=== PATIENT | female | born 1985 | race Caucasian/White ===

== ENCOUNTER 2016-06-07 09:40 | Emergency (ER) | payer OTHER ==
[2016-06-07] MEDS ORDERED: ALBUTEROL SULFATE 2.5 MG/0.5 ML INH NEB SOLN As Ordered ONE ×2 (10:16→11:14)
[2016-06-07] MEDS ORDERED: IPRATROPIUM 0.5MG/ALBUTEROL 2.5MG INH SOL UD 3ML (DUONEB)(J7620) As Ordered ONE ×2 (10:16→11:14)
--- NOTE | 2016-06-07 10:19 | REP ---
PA and lateral chest: Comparison is 02/03/2016. The lung damian are clear. The cardiac size is normal The colten, mediastinum, and bony thorax are unremarkable. Impression: Negative PA and lateral chest. There is no interval change. Signed by Clint Pierson MD 06/07/2016 10:11 A
[2016-06-07 10:30] LABS: BASO % 0.5 % (0.0-1.0); EOS # 0.2 K/mm3 (0.0-0.50); EOS % 1.8 % (0.0-3.0); LARGE UNSTAINED CELL # 0.2 K/mm3 (0.0-0.4); LARGE UNSTAINED CELL % 2.6 % (0.0-4.0); LYMPH # 3.7 K/mm3 (1.5-4.5); LYMPH % 39.9 % (24.0-44.0); MEAN CORPUSCULAR HEMOGLOBIN 27.9 pg (27.0-33.0); MEAN CORPUSCULAR HGB CONC 33.6 g/dl (32.0-36.5); MONO # 0.4 K/mm3 (0.0-0.8); MONO % 4.1 % (0.0-5.0); NEUTROPHILS # 4.7 K/mm3 (1.8-7.7); PLATELET COUNT, AUTOMATED 271 k/mm3 (150-450); RED CELL DISTRIBUTION WIDTH 13.1 % (11.5-14.5); WHITE BLOOD COUNT 9.2 K/mm3 (4.0-10.0)
[2016-06-07 10:46] LABS: CONTROL LINE HCG INT CTR LINE PRESENT
[2016-06-07 10:53] LABS: ANION GAP 12 MEQ/L (8-16); BLOOD UREA NITROGEN 8 MG/DL (7-18); CALCIUM LEVEL 9.3 MG/DL (8.5-10.1); CARBON DIOXIDE LEVEL 20 MEQ/L (21-32); CHLORIDE LEVEL 111 MEQ/L (98-107); CREATININE FOR GFR 0.73 MG/DL (0.55-1.02); GLOMERULAR FILTRATION RATE > 60.0 (>60); GLUCOSE, FASTING 99 MG/DL (70-105); POTASSIUM SERUM 4.2 MEQ/L (3.5-5.1); SODIUM LEVEL 143 MEQ/L (136-145)
[2016-06-07] MEDS ORDERED: methylPREDNISolone INJ 125 MG/2 ML VIAL (J2930) As Ordered ONE (10:55)
[2016-06-07] MEDS ORDERED: AZITHROMYCIN 250 MG TAB As Ordered ONE (12:29)
--- NOTE | 2016-06-07 12:39 | EDDOCDS ---
Physician Documentation [facility] Name: Holly Grady Age: 31 yrs Sex: Female : 1985 Arrival Date: 06/07/2016 Time: 09:40 Bed 12 Private MD: Terri Conway Disposition: 06/07/16 12:28 Discharged to Home/Self Care. Impression: Mild persistent asthma with (acute) exacerbation, Acute bronchitis. - Condition is Stable. - Discharge Instructions: Acute Bronchitis, Asthma, Adult, [id number]. - Prescriptions for Zithromax Z- Michael 250 mg Oral Tablet - take 1 tablet by ORAL route as directed for 5 days Day 1- take two tablets once. Day 2, 3, 4 , 5 take one tablet once daily.; 6 tablet. Prednisone 20 mg Oral Tablet - take 1 tablet by ORAL route as directed Day 1-3: 3 po, day 4-7: 2 po, day 8-10: 1 po; 20 tablet. Albuterol Sulfate 90 mcg/actuation Inhalation HFA Aerosol Inhaler - inhale 2 puff by INHALATION route every 4 hours As needed; 1 Inhaler. - Medication Reconciliation, Local Pharmacy Hours form. - Follow up: Terri Conway; When: 2 - 3 days. - Problem is an acute exacerbation. - Symptoms have improved. - Notes: please follow up w terri conway. return if worsening symptopms Historical: - Allergies: Amoxicillin; SULFA (SULFONAMIDES); Latex; - Home Meds: 1. lamotrigine 200 mg Oral tab 1 tab once daily (Last dose: 06/07/2016 08:00) 2. Klonopin 1 mg Oral tab 1 tab 3 times per day (Last dose: 06/07/2016 08:00) 3. mirtazapine 30 mg oral TbDL 1 tab once daily (Last dose: 06/06/2016 22:00) 4. Geodon 80 mg Oral cap 1 cap 2 times per day (Last dose: 06/07/2016 08:00) - PMHx: Bipolar disorder; - PSHx: Tonsillectomy; - Family history: Not pertinent. - Social history: Smoking status: Patient uses tobacco products, light tobacco smoker. No barriers to communication noted, The patient speaks fluent Albanian. - : The pt / caregiver states he / she is not on anticoagulants. Home medication list is obtained from the patient. - Exposure Risk Screening:: None identified. Vital Signs: 06/07 09:42 BP 151 / 94; Pulse 119; Resp 24; Temp 98.4(T); Pulse Ox 98% on R/A; Weight 163.29 kg / dem1 359.99 lbs; Height 5 ft. 5 in. (165.10 cm); 09:53 BP 177 / 115; Pulse 115; Resp 28; Temp 97.9(O); Pulse Ox 95% on R/A; Pain 8/10; bnb 11:42 Pulse 102; Pulse Ox 98% ; rs3 11:42 BP 115 / 64 (auto/); Resp 22; rs3 12:10 Pulse Ox 94% on R/A; jml1 12:37 BP 123 / 62; Pulse 98; Resp 20; Temp 98(T); Pulse Ox 99% on R/A; Pain 0/10; rs3 09:42 Body Mass Index 59.91 (163.29 kg, 165.10 cm) dem1 12:10 pt walked approximately 500 ft and maintained 94% O2 jml1 MDM: 09:52 Call Respiratory ordered. ml6 09:52 Call Respiratory complete. kcs 09:53 -Influenza A&B Rapid Antigen - Nose Ordered. EDMS 09:53 BMP Ordered. EDMS 09:53 CBC with Diff Ordered. EDMS 09:53 Chest, 2 View (pa\E\lat) Ordered. EDMS 09:59 Albuterol 5 mg Nebulizer once ordered. ml 10:00 Atrovent - Ipratropium 500 mcg Nebulizer once ordered. ml 10:00 Call Respiratory ordered. ml 10:00 Solu-MEDROL (2mg/kg) 125 mg IVP once; Max 125mg ordered. ml 10:01 Call Respiratory complete. deg 10:19 IV Saline Lock ordered. ml 10:20 -Blood Culture (Adults Only), peripheral from different site, or from device/port/PICC ml etc. if present ordered. 10:21 Lactic Acid (Valdez tube on ice) Ordered. EDMS 10:21 -Blood Culture (Adults Only), peripheral from different site, or from device/port/PICC deg etc. if present complete. 10:21 -Blood Culture Ordered. EDMS 10:23 BLOOD CULTURES Ordered. EDMS 10:26 HCG, QUALITATIVE Ordered. EDMS 10:59 BMP Reviewed. ml 10:59 -Influenza A&B Rapid Antigen - Nose Reviewed. ml 10:59 CBC with Diff Reviewed. ml 10:59 HCG, QUALITATIVE Reviewed. ml 10:59 Chest, 2 View (pa\E\lat) Reviewed. ml 11:11 Albuterol 2.5 mg Nebulizer once ordered. ml 11:11 Albuterol-Ipratropium 3 ml Inhalation once ordered. ml 11:58 Lactic Acid (Valdez tube on ice) Reviewed. ml 12:01 Misc. Nursing Order ordered. ml 12:16 azithromycin 500 mg PO once ordered. ml Administered Medications: 09:59 CANCELLED (Other Intervention Used): Albuterol 2.5 mg Nebulizer once ml 10:20 Drug: Albuterol 5 mg [albuterol sulfate 2.5 mg/0.5 mL solution for nebulization (1 mL)] kjn Route: Nebulizer; 10:20 Drug: Atrovent - Ipratropium 500 mcg [ipratropium bromide 0.02 % solution for kjn inhalation (2.5 mL)] Route: Nebulizer; 11:00 Drug: Solu-MEDROL (2mg/kg) 125 mg [Solu-Medrol 500 mg intravenous solution (125 mg)] [facility] Route: IVP; Site: right antecubital; 11:22 Drug: Albuterol 2.5 mg [albuterol sulfate 2.5 mg/0.5 mL solution for nebulization (0.5 kjn mL)] Route: Nebulizer; 11:22 Drug: Albuterol-Ipratropium 3 ml [ipratropium-albuterol 0.5 mg-3 mg(2.5 mg base)/3 mL kjn nebulization soln (3 mL)] Route: Inhalation; 12:37 Drug: azithromycin 500 mg [azithromycin 250 mg tablet (2 tabs)] Route: PO; rs3 Signatures: Dispatcher [employer] EDMS Sarai Fisher MD MD ml Sleeman, Kacey, RN RN Sophia Herr, Helpdesk Specialist Unit deg Mindy Powers RN RN rs3 Raymond Estrada RN RN ml6 Kelli WhiteRN RN js13 Luis Lanza RNk Deepika Mccarthy The chart was reviewed and I authenticate all verbal orders and agree with the evaluation and treatment provided.Corrections: (The following items were deleted from the chart) 09:59 09:52 Albuterol 2.5 mg Nebulizer once ordered. ml6 ml 10:26 10:21 HCG, QUALITATIVE+LAB ordered. EDMS EDMS MTDD
--- NOTE | 2016-06-07 12:39 | EDDOCDS ---
Nurse's Notes [facility] Name: Holly Grady Age: 31 yrs Sex: Female : 1985 Arrival Date: 06/07/2016 Time: 09:40 Bed 12 Private MD: Terri Conway Diagnosis: Mild persistent asthma with (acute) exacerbation;Acute bronchitis Presentation: 06/07 09:47 Presenting complaint: Patient states: states sob and cough x 1 week. Adult Sepsis ml6 Screening: The patient does not have new or worsening altered mentation. Patient's respiratory rate is less than 22. Systolic blood pressure is greater than 100. Patient has a qSOFA score of 0- Negative Sepsis Screen. Suicide/Homicide risk assessment- the patient denies having any suicidal and/or homicidal ideations and does not present with any other emotional, behavioral or mental health complaints. Status: Patient is not a director of patient financial services or dependent. Transition of care: patient was not received from another setting of care. Red Flag criteria, patient assessed and taken directly to a bed. 09:47 Acuity: JAMES Level 3 ml6 09:47 Method Of Arrival: Walkin/Carried/Asstd ml6 Triage Assessment: 09:50 General: Appears distressed, Behavior is anxious. Pain: Denies pain. HIV screening NA ml6 for this visit Offered previously. Respiratory: Onset: The symptoms/episode began/occurred 1 week WORKERS COMPENSATION COORDINATOR, Airway is patent Respiratory effort is even, labored, Respiratory pattern is regular, symmetrical, Breath sounds are coarse expiratory bilaterally. Breath sounds with wheezes expiratory Reports shortness of breath at rest the patient has moderate shortness of breath. Historical: - Allergies: Amoxicillin; SULFA (SULFONAMIDES); Latex; - Home Meds: 1. lamotrigine 200 mg Oral tab 1 tab once daily (Last dose: 06/07/2016 08:00) 2. Klonopin 1 mg Oral tab 1 tab 3 times per day (Last dose: 06/07/2016 08:00) 3. mirtazapine 30 mg oral TbDL 1 tab once daily (Last dose: 06/06/2016 22:00) 4. Geodon 80 mg Oral cap 1 cap 2 times per day (Last dose: 06/07/2016 08:00) - PMHx: Bipolar disorder; - PSHx: Tonsillectomy; - Family history: Not pertinent. - Social history: Smoking status: Patient uses tobacco products, light tobacco smoker. No barriers to communication noted, The patient speaks fluent Setswana. - : The pt / caregiver states he / she is not on anticoagulants. Home medication list is obtained from the patient. - Exposure Risk Screening:: None identified. Screenin:49 Screening information is obtained from the patient. Fall risk: No risks identified. js13 Assistance ADL's: requires no assistance with activities of daily living. Abuse/DV Screen: The patient / caregiver reports he/she is: not in a situation that causes fear, pain or injury. Nutritional screening: No deficits noted. Advance Directives: There is no active DNR order. home support is adequate. Assessment: 09:54 General: Appears in no apparent distress, Behavior is appropriate for age, cooperative. js13 Pain: Denies pain. Neurological: Level of Consciousness is awake, alert. Cardiovascular: Chest pain is denied. Respiratory: Airway is patent Respiratory effort is even, Respiratory pattern is hyperventilation Breath sounds with wheezes. Derm: Skin is pink, warm & dry. 10:39 General:. js13 11:40 General: Appears in no apparent distress, Behavior is anxious, reports of midsternal rs3 chest pain from dry hiving and cough. states feeling better since came in here. lung sounds scattered rhonchi present after neb treatment. vital signs stable. hyperventilates while talking. instructed her to do deep an slow breathing. . 12:37 Reassessment: Patient appears in no apparent distress at this time. Patient denies pain rs3 at this time. Patient states feeling better. Patient states symptoms have improved. Vital Signs: 09:42 BP 151 / 94; Pulse 119; Resp 24; Temp 98.4(T); Pulse Ox 98% on R/A; Weight 163.29 kg; dem1 Height 5 ft. 5 in. (165.10 cm); 09:53 BP 177 / 115; Pulse 115; Resp 28; Temp 97.9(O); Pulse Ox 95% on R/A; Pain 8/10; bnb 11:42 Pulse 102; Pulse Ox 98% ; rs3 11:42 BP 115 / 64 (auto/); Resp 22; rs3 12:10 Pulse Ox 94% on R/A; jml1 12:37 BP 123 / 62; Pulse 98; Resp 20; Temp 98(T); Pulse Ox 99% on R/A; Pain 0/10; rs3 09:42 Body Mass Index 59.91 (163.29 kg, 165.10 cm) dem1 12:10 pt walked approximately 500 ft and maintained 94% O2 jml1 Vitals: 09:42 Log In Time: June 07, 2016 at 09:39. RN notified that patient meets Red Flag dem1 criteria. ED Course: 09:42 Patient visited by Nikunj Zamorano. dem1 09:42 Terri Conway is Private Physician. dem1 09:42 Patient moved to Waiting dem1 09:43 Patient visited by Nikunj Zamorano. dem1 09:43 Patient moved to Pre RCE dem1 09:46 Kelli White RN is Primary Nurse. js13 09:46 Patient moved to 12 js13 09:48 Triage Initiated ml6 09:49 The patient / caregiver is instructed regarding the plan of care and ED course. js13 09:50 Patient visited by Kelli White RN. js13 09:52 Sarai Fisher MD is Attending Physician. ml 09:52 Patient visited by Sarai Fisher MD. ml 09:54 Patient visited by Ricarda Issa, OLGA. bnb 09:54 Patient visited by Kelli White RN. js13 10:44 Chest, 2 View (pa\E\lat) Returned. EDMS 10:59 Patient visited by Bebe Atkins RN. hs1 10:59 Lactic Acid (Valdez tube on ice) Sent. hs1 10:59 -Blood Culture Sent. hs1 10:59 BLOOD CULTURES Sent. hs1 10:59 Inserted saline lock: 18 gauge in right antecubital area and blood collected. The hs1 patient tolerated the procedure well. 11:06 Mindy Powers RN is Primary Nurse. rs3 11:39 Patient visited by Mindy Powers RN. rs3 12:11 Patient visited by David Ko. jml1 12:28 Terri Conway is Referral Physician. ml 12:38 Discontinued lock bleeding controlled, pressure dressing applied, No redness/swelling rs3 at site. No procedures done that require assistance. Administered Medications: 09:59 CANCELLED (Other Intervention Used): Albuterol 2.5 mg Nebulizer once ml 10:20 Drug: Albuterol 5 mg [albuterol sulfate 2.5 mg/0.5 mL solution for nebulization (1 mL)] kjn Route: Nebulizer; 10:20 Drug: Atrovent - Ipratropium 500 mcg [ipratropium bromide 0.02 % solution for kjn inhalation (2.5 mL)] Route: Nebulizer; 11:00 Drug: Solu-MEDROL (2mg/kg) 125 mg [Solu-Medrol 500 mg intravenous solution (125 mg)] jmk Route: IVP; Site: right antecubital; 11:22 Drug: Albuterol 2.5 mg [albuterol sulfate 2.5 mg/0.5 mL solution for nebulization (0.5 kjn mL)] Route: Nebulizer; 11:22 Drug: Albuterol-Ipratropium 3 ml [ipratropium-albuterol 0.5 mg-3 mg(2.5 mg base)/3 mL kjn nebulization soln (3 mL)] Route: Inhalation; 12:37 Drug: azithromycin 500 mg [azithromycin 250 mg tablet (2 tabs)] Route: PO; rs3 RT: 10:20 Initial Med Neb Given as ordered. Respiratory: Breath sounds are coarse Breath sounds kjn with wheezes bilaterally. at expiration at inspiration. 11:23 Subsequent Med Neb Given as ordered. Respiratory: Breath sounds are coarse Breath kjn sounds with wheezes bilaterally. at expiration at inspiration. Order Results: Lab Order: -Influenza A&B Rapid Antigen - Nose; SPEC'M 06/07/16 10:03 Test: INFLUENZA A RAPID SCR by ICA; Value: INFLUENZA A RESULTS NEGATIVE; Status: F Test: INFLUENZA A RAPID SCR by ICA; Value: Comments:; Status: F Test: INFLUENZA B RAPID SCR by ICA; Value: INFLUENZA B RESULTS NEGATIVE; Status: F Test Note: ; The Influenza test is a direct rapid immunoassay for the qualitative detection of Influenza viral antigen. Cell culture (Viral Culture) testing should be considered to confirm NEGATIVE results and to assist in detecting other viruses that can provide similar clinical symptoms. Please contact the lab within 24 hours ([phone]) if confirmatory testing is desired. Lab Order: BMP; SPEC'M 06/07/16 10:14 Test: GLUCOSE, FASTING; Value: 99; Range: 70-105; Units: MG/DL; Status: F Test: BLOOD UREA NITROGEN; Value: 8; Range: 7-18; Units: MG/DL; Status: F Test: CREATININE FOR GFR; Value: 0.73; Range: 0.55-1.02; Units: MG/DL; Status: F Test: SODIUM LEVEL; Range: 136-145; Units: MEQ/L; Status: I Test: POTASSIUM SERUM; Range: 3.5-5.1; Units: MEQ/L; Status: I Test: CHLORIDE LEVEL; Range: 98-107; Units: MEQ/L; Status: I Test: CARBON DIOXIDE LEVEL; Range: 21-32; Units: MEQ/L; Status: I Test: ANION GAP; Range: 8-16; Units: MEQ/L; Status: I Test: CALCIUM LEVEL; Range: 8.5-10.1; Units: MG/DL; Status: I Test: GLOMERULAR FILTRATION RATE; Value: > 60.0; Range: >60; Status: F Test: SODIUM LEVEL; Value: 143; Range: 136-145; Units: MEQ/L; Status: F Test: POTASSIUM SERUM; Value: 4.2; Range: 3.5-5.1; Units: MEQ/L; Status: F Test: CHLORIDE LEVEL; Value: 111; Range: 98-107; Abnormal: Above high normal; Units: MEQ/L; Status: F Test: CARBON DIOXIDE LEVEL; Value: 20; Range: 21-32; Abnormal: Below low normal; Units: MEQ/L; Status: F Test: ANION GAP; Value: 12; Range: 8-16; Units: MEQ/L; Status: F Test: CALCIUM LEVEL; Value: 9.3; Range: 8.5-10.1; Units: MG/DL; Status: F Test Note: ; Units are mL/min/1.73 m2 Chronic Kidney Disease Staging per NKF: Stage I & II GFR >=60 Normal to Mildly Decreased Stage III GFR 30-59 Moderately Decreased Stage IV GFR 15-29 Severely Decreased Stage V GFR <15 Very Little GFR Left ESRD GFR <15 on INSPECTOR [employer] Lab Order: CBC with Diff; SPEC'M 06/07/16 10:14 Test: WHITE BLOOD COUNT; Value: 9.2; Range: 4.0-10.0; Units: K/mm3; Status: F Test: RED BLOOD COUNT; Value: 5.21; Range: 4.00-5.40; Units: M/mm3; Status: F Test: HEMOGLOBIN; Value: 14.5; Range: 12.0-16.0; Units: g/dl; Status: F Test: HEMATOCRIT; Value: 43.2; Range: 36.0-47.0; Units: %; Status: F Test: MEAN CORPUSCULAR VOLUME; Value: 83.0; Range: 80.0-96.0; Units: fl; Status: F Test: MEAN CORPUSCULAR HEMOGLOBIN; Value: 27.9; Range: 27.0-33.0; Units: pg; Status: F Test: MEAN CORPUSCULAR HGB CONC; Value: 33.6; Range: 32.0-36.5; Units: g/dl; Status: F Test: RED CELL DISTRIBUTION WIDTH; Value: 13.1; Range: 11.5-14.5; Units: %; Status: F Test: PLATELET COUNT, AUTOMATED; Value: 271; Range: 150-450; Units: k/mm3; Status: F Test: NEUTROPHILS %; Value: 51.0; Range: 36.0-66.0; Units: %; Status: F Test: LYMPH %; Value: 39.9; Range: 24.0-44.0; Units: %; Status: F Test: MONO %; Value: 4.1; Range: 0.0-5.0; Units: %; Status: F Test: EOS %; Value: 1.8; Range: 0.0-3.0; Units: %; Status: F Test: BASO %; Value: 0.5; Range: 0.0-1.0; Units: %; Status: F Test: LARGE UNSTAINED CELL %; Value: 2.6; Range: 0.0-4.0; Units: %; Status: F Test: NEUTROPHILS #; Value: 4.7; Range: 1.8-7.7; Units: K/mm3; Status: F Test: LYMPH #; Value: 3.7; Range: 1.5-4.5; Units: K/mm3; Status: F Test: MONO #; Value: 0.4; Range: 0.0-0.8; Units: K/mm3; Status: F Test: EOS #; Value: 0.2; Range: 0.0-0.50; Units: K/mm3; Status: F Test: BASO #; Value: 0.0; Range: 0.0-0.2; Units: K/mm3; Status: F Test: LARGE UNSTAINED CELL #; Value: 0.2; Range: 0.0-0.4; Units: K/mm3; Status: F Lab Order: Lactic Acid (Valdez tube on ice); SPEC'M 06/07/16 10:57 Test: LACTIC ACID SEPSIS PROTOCOL; Value: 1.2; Range: 0.4-2.0; Units: MMOL/L; Status: F Lab Order: HCG, QUALITATIVE; SPEC'M 06/07/16 10:14 Test: HCG, SERUM QUALITATIVE; Value: NEGATIVE; Range: NEGATIVE; Status: F Radiology Order: Chest, 2 View (pa\E\lat) Test: Chest, 2 View (pa\E\lat) REASON FOR EXAMINATION: Shortness of Breath; PA and lateral chest:; ; Comparison is 02/03/2016.; ; The lung damian are clear. The cardiac size is normal; ; The colten, mediastinum, and bony thorax are unremarkable.; ; Impression:; ; Negative PA and lateral chest. There is no interval change.; ; ; Signed by; Clint Pierson MD 06/07/2016 10:11 A; Outcome: 12:28 Discharge ordered by Provider. 12:38 Discharge Assessment: patient administered narcotics - no. The following High Risk rs3 Discharge criteria are identified: None. Discharged to home with family. Condition: stable. Discharge instructions given to patient, Instructed on discharge instructions, follow up and referral plans. medication usage, Demonstrated understanding of instructions, medications, Pt was receptive of discharge instructions/ teaching. Prescriptions given X 2. No special radiology studies were completed. Property :Personal belongings accompany Pt. 12:39 Patient left the ED. rs3 Signatures: Dispatcher [employer] EDMS Sarai Fisher MD MD ml Knapp, JeanRN RN Mindy Pierre RN RN rs3 Raymond Estrada, FLACA RN ml6 Bebe Atkins RN RN hs1 David Ko l1 [facility] Kelli WhiteRN RN js13 Deepika Mccarthy Brittney, OLGA [employer] bnb Corrections: (The following items were deleted from the chart) 09:44 09:42 BP 151 / 94; Pulse 119bpm; Resp 24bpm; Pulse Ox 98% RA; 163.29 kg; Height 5 ft. 5 dem1 in.; BMI: 59.9; dem1 12:18 11:42 BP 115 / 64 Auto; rs3 rs3 MTDD
--- NOTE | 2016-06-09 13:39 | EDDOCDS ---
Physician Documentation [facility] Name: Holly Grady Age: 31 yrs Sex: Female : 1985 Arrival Date: 06/07/2016 Time: 09:40 Bed 12 Private MD: Terri Conway Disposition: 06/07/16 12:28 Discharged to Home/Self Care. Impression: Mild persistent asthma with (acute) exacerbation, Acute bronchitis. - Condition is Stable. - Discharge Instructions: Acute Bronchitis, Asthma, Adult, [id number]. - Prescriptions for Zithromax Z- Michael 250 mg Oral Tablet - take 1 tablet by ORAL route as directed for 5 days Day 1- take two tablets once. Day 2, 3, 4 , 5 take one tablet once daily.; 6 tablet. Prednisone 20 mg Oral Tablet - take 1 tablet by ORAL route as directed Day 1-3: 3 po, day 4-7: 2 po, day 8-10: 1 po; 20 tablet. Albuterol Sulfate 90 mcg/actuation Inhalation HFA Aerosol Inhaler - inhale 2 puff by INHALATION route every 4 hours As needed; 1 Inhaler. - Medication Reconciliation, Local Pharmacy Hours form. - Follow up: Terri Conway; When: 2 - 3 days. - Problem is an acute exacerbation. - Symptoms have improved. - Notes: please follow up w terri conway. return if worsening symptopms Historical: - Allergies: Amoxicillin; SULFA (SULFONAMIDES); Latex; - Home Meds: 1. lamotrigine 200 mg Oral tab 1 tab once daily (Last dose: 06/07/2016 08:00) 2. Klonopin 1 mg Oral tab 1 tab 3 times per day (Last dose: 06/07/2016 08:00) 3. mirtazapine 30 mg oral TbDL 1 tab once daily (Last dose: 06/06/2016 22:00) 4. Geodon 80 mg Oral cap 1 cap 2 times per day (Last dose: 06/07/2016 08:00) - PMHx: Bipolar disorder; - PSHx: Tonsillectomy; - Family history: Not pertinent. - Social history: Smoking status: Patient uses tobacco products, light tobacco smoker. No barriers to communication noted, The patient speaks fluent Faroese. - : The pt / caregiver states he / she is not on anticoagulants. Home medication list is obtained from the patient. - Exposure Risk Screening:: None identified. Vital Signs: 06/07 09:42 BP 151 / 94; Pulse 119; Resp 24; Temp 98.4(T); Pulse Ox 98% on R/A; Weight 163.29 kg / dem1 359.99 lbs; Height 5 ft. 5 in. (165.10 cm); 09:53 BP 177 / 115; Pulse 115; Resp 28; Temp 97.9(O); Pulse Ox 95% on R/A; Pain 8/10; bnb 11:42 Pulse 102; Pulse Ox 98% ; rs3 11:42 BP 115 / 64 (auto/); Resp 22; rs3 12:10 Pulse Ox 94% on R/A; jml1 12:37 BP 123 / 62; Pulse 98; Resp 20; Temp 98(T); Pulse Ox 99% on R/A; Pain 0/10; rs3 09:42 Body Mass Index 59.91 (163.29 kg, 165.10 cm) dem1 12:10 pt walked approximately 500 ft and maintained 94% O2 jml1 MDM: 09:52 Call Respiratory ordered. ml6 09:52 Call Respiratory complete. kcs 09:53 -Influenza A&B Rapid Antigen - Nose Ordered. EDMS 09:53 BMP Ordered. EDMS 09:53 CBC with Diff Ordered. EDMS 09:53 Chest, 2 View (pa\E\lat) Ordered. EDMS 09:59 Albuterol 5 mg Nebulizer once ordered. ml 10:00 Atrovent - Ipratropium 500 mcg Nebulizer once ordered. ml 10:00 Call Respiratory ordered. ml 10:00 Solu-MEDROL (2mg/kg) 125 mg IVP once; Max 125mg ordered. ml 10:01 Call Respiratory complete. deg 10:19 IV Saline Lock ordered. ml 10:20 -Blood Culture (Adults Only), peripheral from different site, or from device/port/PICC ml etc. if present ordered. 10:21 Lactic Acid (Valdez tube on ice) Ordered. EDMS 10:21 -Blood Culture (Adults Only), peripheral from different site, or from device/port/PICC deg etc. if present complete. 10:21 -Blood Culture Ordered. EDMS 10:23 BLOOD CULTURES Ordered. EDMS 10:26 HCG, QUALITATIVE Ordered. EDMS 10:59 BMP Reviewed. ml 10:59 -Influenza A&B Rapid Antigen - Nose Reviewed. ml 10:59 CBC with Diff Reviewed. ml 10:59 HCG, QUALITATIVE Reviewed. ml 10:59 Chest, 2 View (pa\E\lat) Reviewed. ml 11:11 Albuterol 2.5 mg Nebulizer once ordered. ml 11:11 Albuterol-Ipratropium 3 ml Inhalation once ordered. ml 11:58 Lactic Acid (Valdez tube on ice) Reviewed. ml 12:01 Misc. Nursing Order ordered. ml 12:16 azithromycin 500 mg PO once ordered. ml 13:07 Financial registration complete. az 13:22 [facility] Payment Agreement was scanned into [employer] and attached to record. az 14:16 T-Sheet-- Draft Copy was scanned into [employer] and attached to record. gb 14:17 Radiology Report was scanned into [employer] and attached to record. gb 06/08 08:07 T-Sheet-- Draft Copy was scanned into [employer] and attached to record. gb Administered Medications: 06/07 09:59 CANCELLED (Other Intervention Used): Albuterol 2.5 mg Nebulizer once ml 10:20 Drug: Albuterol 5 mg [albuterol sulfate 2.5 mg/0.5 mL solution for nebulization (1 mL)] kjn Route: Nebulizer; 10:20 Drug: Atrovent - Ipratropium 500 mcg [ipratropium bromide 0.02 % solution for kjn inhalation (2.5 mL)] Route: Nebulizer; 11:00 Drug: Solu-MEDROL (2mg/kg) 125 mg [Solu-Medrol 500 mg intravenous solution (125 mg)] jmk Route: IVP; Site: right antecubital; 11:22 Drug: Albuterol 2.5 mg [albuterol sulfate 2.5 mg/0.5 mL solution for nebulization (0.5 kjn mL)] Route: Nebulizer; 11:22 Drug: Albuterol-Ipratropium 3 ml [ipratropium-albuterol 0.5 mg-3 mg(2.5 mg base)/3 mL kjn nebulization soln (3 mL)] Route: Inhalation; 12:37 Drug: azithromycin 500 mg [azithromycin 250 mg tablet (2 tabs)] Route: PO; rs3 Signatures: Dispatcher [employer] EDMS Sarai Fisher MD MD ml Sleeman, Kacey, RN RN Sophia Herr, Collection Advisor Unit deg Blanca Peck, Reg Reg gb Mindy Powers RN RN rs3 Raymond Estrada RN RN ml6 Kelli WhiteRN RN js13 Mckenzie Reyez Jean RN jmk Navarra, Katherine kjn The chart was reviewed and I authenticate all verbal orders and agree with the evaluation and treatment provided.Corrections: (The following items were deleted from the chart) 09:59 09:52 Albuterol 2.5 mg Nebulizer once ordered. ml6 ml 10:26 10:21 HCG, QUALITATIVE+LAB ordered. EDMS EDMS Attachments: 13:22 [facility] Payment Agreement az 06/08 08:07 T-Sheet-- Draft Copy gb Chart Complete MTDD
--- NOTE | 2016-06-09 13:39 | EDDOCDS ---
Nurse's Notes [facility] Name: Holly Grady Age: 31 yrs Sex: Female : 1985 Arrival Date: 06/07/2016 Time: 09:40 Bed 12 Private MD: Terri Conway Diagnosis: Mild persistent asthma with (acute) exacerbation;Acute bronchitis Presentation: 06/07 09:47 Presenting complaint: Patient states: states sob and cough x 1 week. Adult Sepsis ml6 Screening: The patient does not have new or worsening altered mentation. Patient's respiratory rate is less than 22. Systolic blood pressure is greater than 100. Patient has a qSOFA score of 0- Negative Sepsis Screen. Suicide/Homicide risk assessment- the patient denies having any suicidal and/or homicidal ideations and does not present with any other emotional, behavioral or mental health complaints. Status: Patient is not a counseling services director or dependent. Transition of care: patient was not received from another setting of care. Red Flag criteria, patient assessed and taken directly to a bed. 09:47 Acuity: JAMES Level 3 ml6 09:47 Method Of Arrival: Walkin/Carried/Asstd ml6 Triage Assessment: 09:50 General: Appears distressed, Behavior is anxious. Pain: Denies pain. HIV screening NA ml6 for this visit Offered previously. Respiratory: Onset: The symptoms/episode began/occurred 1 week [employer], Airway is patent Respiratory effort is even, labored, Respiratory pattern is regular, symmetrical, Breath sounds are coarse expiratory bilaterally. Breath sounds with wheezes expiratory Reports shortness of breath at rest the patient has moderate shortness of breath. Historical: - Allergies: Amoxicillin; SULFA (SULFONAMIDES); Latex; - Home Meds: 1. lamotrigine 200 mg Oral tab 1 tab once daily (Last dose: 06/07/2016 08:00) 2. Klonopin 1 mg Oral tab 1 tab 3 times per day (Last dose: 06/07/2016 08:00) 3. mirtazapine 30 mg oral TbDL 1 tab once daily (Last dose: 06/06/2016 22:00) 4. Geodon 80 mg Oral cap 1 cap 2 times per day (Last dose: 06/07/2016 08:00) - PMHx: Bipolar disorder; - PSHx: Tonsillectomy; - Family history: Not pertinent. - Social history: Smoking status: Patient uses tobacco products, light tobacco smoker. No barriers to communication noted, The patient speaks fluent Kyrgyz. - : The pt / caregiver states he / she is not on anticoagulants. Home medication list is obtained from the patient. - Exposure Risk Screening:: None identified. Screenin:49 Screening information is obtained from the patient. Fall risk: No risks identified. js13 Assistance ADL's: requires no assistance with activities of daily living. Abuse/DV Screen: The patient / caregiver reports he/she is: not in a situation that causes fear, pain or injury. Nutritional screening: No deficits noted. Advance Directives: There is no active DNR order. home support is adequate. Assessment: 09:54 General: Appears in no apparent distress, Behavior is appropriate for age, cooperative. js13 Pain: Denies pain. Neurological: Level of Consciousness is awake, alert. Cardiovascular: Chest pain is denied. Respiratory: Airway is patent Respiratory effort is even, Respiratory pattern is hyperventilation Breath sounds with wheezes. Derm: Skin is pink, warm & dry. 10:39 General:. js13 11:40 General: Appears in no apparent distress, Behavior is anxious, reports of midsternal rs3 chest pain from dry hiving and cough. states feeling better since came in here. lung sounds scattered rhonchi present after neb treatment. vital signs stable. hyperventilates while talking. instructed her to do deep an slow breathing. . 12:37 Reassessment: Patient appears in no apparent distress at this time. Patient denies pain rs3 at this time. Patient states feeling better. Patient states symptoms have improved. Vital Signs: 09:42 BP 151 / 94; Pulse 119; Resp 24; Temp 98.4(T); Pulse Ox 98% on R/A; Weight 163.29 kg; dem1 Height 5 ft. 5 in. (165.10 cm); 09:53 BP 177 / 115; Pulse 115; Resp 28; Temp 97.9(O); Pulse Ox 95% on R/A; Pain 8/10; bnb 11:42 Pulse 102; Pulse Ox 98% ; rs3 11:42 BP 115 / 64 (auto/); Resp 22; rs3 12:10 Pulse Ox 94% on R/A; jml1 12:37 BP 123 / 62; Pulse 98; Resp 20; Temp 98(T); Pulse Ox 99% on R/A; Pain 0/10; rs3 09:42 Body Mass Index 59.91 (163.29 kg, 165.10 cm) dem1 12:10 pt walked approximately 500 ft and maintained 94% O2 jml1 Vitals: 09:42 Log In Time: June 07, 2016 at 09:39. RN notified that patient meets Red Flag dem1 criteria. ED Course: 09:42 Patient visited by Nikunj Zamorano. dem1 09:42 Terri Conway is Private Physician. dem1 09:42 Patient moved to Waiting dem1 09:43 Patient visited by Nikunj Zamorano. dem1 09:43 Patient moved to Pre RCE dem1 09:46 Kelli White RN is Primary Nurse. js13 09:46 Patient moved to 12 js13 09:48 Triage Initiated ml6 09:49 The patient / caregiver is instructed regarding the plan of care and ED course. js13 09:50 Patient visited by Kelli White RN. js13 09:52 Sarai Fisher MD is Attending Physician. ml 09:52 Patient visited by Sarai Fisher MD. ml 09:54 Patient visited by Ricarda Issa, OLGA. bnb 09:54 Patient visited by Kelli White RN. js13 10:44 Chest, 2 View (pa\E\lat) Returned. EDMS 10:59 Patient visited by Bebe Atkins RN. hs1 10:59 Lactic Acid (Valdez tube on ice) Sent. hs1 10:59 -Blood Culture Sent. hs1 10:59 BLOOD CULTURES Sent. hs1 10:59 Inserted saline lock: 18 gauge in right antecubital area and blood collected. The hs1 patient tolerated the procedure well. 11:06 Mindy Powers RN is Primary Nurse. rs3 11:39 Patient visited by Mindy Powers RN. rs3 12:11 Patient visited by David Ko. jml1 12:28 Terri Conway is Referral Physician. ml 12:38 Discontinued lock bleeding controlled, pressure dressing applied, No redness/swelling rs3 at site. No procedures done that require assistance. 13:22 [facility] Payment Agreement was scanned into MEDHOST and attached to record. az 14:16 T-Sheet-- Draft Copy was scanned into MEDHOST and attached to record. gb 14:17 Radiology Report was scanned into MEDHOST and attached to record. gb 06/08 08:07 T-Sheet-- Draft Copy was scanned into MEDHOST and attached to record. gb Administered Medications: 06/07 09:59 CANCELLED (Other Intervention Used): Albuterol 2.5 mg Nebulizer once ml 10:20 Drug: Albuterol 5 mg [albuterol sulfate 2.5 mg/0.5 mL solution for nebulization (1 mL)] kjn Route: Nebulizer; 10:20 Drug: Atrovent - Ipratropium 500 mcg [ipratropium bromide 0.02 % solution for kjn inhalation (2.5 mL)] Route: Nebulizer; 11:00 Drug: Solu-MEDROL (2mg/kg) 125 mg [Solu-Medrol 500 mg intravenous solution (125 mg)] jmk Route: IVP; Site: right antecubital; 11:22 Drug: Albuterol 2.5 mg [albuterol sulfate 2.5 mg/0.5 mL solution for nebulization (0.5 kjn mL)] Route: Nebulizer; 11:22 Drug: Albuterol-Ipratropium 3 ml [ipratropium-albuterol 0.5 mg-3 mg(2.5 mg base)/3 mL kjn nebulization soln (3 mL)] Route: Inhalation; 12:37 Drug: azithromycin 500 mg [azithromycin 250 mg tablet (2 tabs)] Route: PO; rs3 RT: 10:20 Initial Med Neb Given as ordered. Respiratory: Breath sounds are coarse Breath sounds kjn with wheezes bilaterally. at expiration at inspiration. 11:23 Subsequent Med Neb Given as ordered. Respiratory: Breath sounds are coarse Breath kjn sounds with wheezes bilaterally. at expiration at inspiration. Order Results: Lab Order: -Influenza A&B Rapid Antigen - Nose; SPEC'M 06/07/16 10:03 Test: INFLUENZA A RAPID SCR by ICA; Value: INFLUENZA A RESULTS NEGATIVE; Status: F Test: INFLUENZA A RAPID SCR by ICA; Value: Comments:; Status: F Test: INFLUENZA B RAPID SCR by ICA; Value: INFLUENZA B RESULTS NEGATIVE; Status: F Test Note: ; The Influenza test is a direct rapid immunoassay for the qualitative detection of Influenza viral antigen. Cell culture (Viral Culture) testing should be considered to confirm NEGATIVE results and to assist in detecting other viruses that can provide similar clinical symptoms. Please contact the lab within 24 hours ([phone]) if confirmatory testing is desired. Lab Order: BMP; SPEC'M 06/07/16 10:14 Test: GLUCOSE, FASTING; Value: 99; Range: 70-105; Units: MG/DL; Status: F Test: BLOOD UREA NITROGEN; Value: 8; Range: 7-18; Units: MG/DL; Status: F Test: CREATININE FOR GFR; Value: 0.73; Range: 0.55-1.02; Units: MG/DL; Status: F Test: SODIUM LEVEL; Range: 136-145; Units: MEQ/L; Status: I Test: POTASSIUM SERUM; Range: 3.5-5.1; Units: MEQ/L; Status: I Test: CHLORIDE LEVEL; Range: 98-107; Units: MEQ/L; Status: I Test: CARBON DIOXIDE LEVEL; Range: 21-32; Units: MEQ/L; Status: I Test: ANION GAP; Range: 8-16; Units: MEQ/L; Status: I Test: CALCIUM LEVEL; Range: 8.5-10.1; Units: MG/DL; Status: I Test: GLOMERULAR FILTRATION RATE; Value: > 60.0; Range: >60; Status: F Test: SODIUM LEVEL; Value: 143; Range: 136-145; Units: MEQ/L; Status: F Test: POTASSIUM SERUM; Value: 4.2; Range: 3.5-5.1; Units: MEQ/L; Status: F Test: CHLORIDE LEVEL; Value: 111; Range: 98-107; Abnormal: Above high normal; Units: MEQ/L; Status: F Test: CARBON DIOXIDE LEVEL; Value: 20; Range: 21-32; Abnormal: Below low normal; Units: MEQ/L; Status: F Test: ANION GAP; Value: 12; Range: 8-16; Units: MEQ/L; Status: F Test: CALCIUM LEVEL; Value: 9.3; Range: 8.5-10.1; Units: MG/DL; Status: F Test Note: ; Units are mL/min/1.73 m2 Chronic Kidney Disease Staging per NKF: Stage I & II GFR >=60 Normal to Mildly Decreased Stage III GFR 30-59 Moderately Decreased Stage IV GFR 15-29 Severely Decreased Stage V GFR <15 Very Little GFR Left ESRD GFR <15 on OFFICE SUPPORT SPECIALIST Lab Order: CBC with Diff; JEREMY 06/07/16 10:14 Test: WHITE BLOOD COUNT; Value: 9.2; Range: 4.0-10.0; Units: K/mm3; Status: F Test: RED BLOOD COUNT; Value: 5.21; Range: 4.00-5.40; Units: M/mm3; Status: F Test: HEMOGLOBIN; Value: 14.5; Range: 12.0-16.0; Units: g/dl; Status: F Test: HEMATOCRIT; Value: 43.2; Range: 36.0-47.0; Units: %; Status: F Test: MEAN CORPUSCULAR VOLUME; Value: 83.0; Range: 80.0-96.0; Units: fl; Status: F Test: MEAN CORPUSCULAR HEMOGLOBIN; Value: 27.9; Range: 27.0-33.0; Units: pg; Status: F Test: MEAN CORPUSCULAR HGB CONC; Value: 33.6; Range: 32.0-36.5; Units: g/dl; Status: F Test: RED CELL DISTRIBUTION WIDTH; Value: 13.1; Range: 11.5-14.5; Units: %; Status: F Test: PLATELET COUNT, AUTOMATED; Value: 271; Range: 150-450; Units: k/mm3; Status: F Test: NEUTROPHILS %; Value: 51.0; Range: 36.0-66.0; Units: %; Status: F Test: LYMPH %; Value: 39.9; Range: 24.0-44.0; Units: %; Status: F Test: MONO %; Value: 4.1; Range: 0.0-5.0; Units: %; Status: F Test: EOS %; Value: 1.8; Range: 0.0-3.0; Units: %; Status: F Test: BASO %; Value: 0.5; Range: 0.0-1.0; Units: %; Status: F Test: LARGE UNSTAINED CELL %; Value: 2.6; Range: 0.0-4.0; Units: %; Status: F Test: NEUTROPHILS #; Value: 4.7; Range: 1.8-7.7; Units: K/mm3; Status: F Test: LYMPH #; Value: 3.7; Range: 1.5-4.5; Units: K/mm3; Status: F Test: MONO #; Value: 0.4; Range: 0.0-0.8; Units: K/mm3; Status: F Test: EOS #; Value: 0.2; Range: 0.0-0.50; Units: K/mm3; Status: F Test: BASO #; Value: 0.0; Range: 0.0-0.2; Units: K/mm3; Status: F Test: LARGE UNSTAINED CELL #; Value: 0.2; Range: 0.0-0.4; Units: K/mm3; Status: F Lab Order: Lactic Acid (Valdez tube on ice); [facility] 06/07/16 10:57 Test: LACTIC ACID SEPSIS PROTOCOL; Value: 1.2; Range: 0.4-2.0; Units: MMOL/L; Status: F Lab Order: -Blood Culture; [facility] 06/07/16 10:58 Test: BLOOD CULTURE; Value: No growth after 24 hours . All specimens observed; Status: F Test: BLOOD CULTURE; Value: for 5 days. Results final at that time.; Status: F Test: BLOOD CULTURE; Value: No Growth after 48 hours. All Specimens observed; Status: F Test: BLOOD CULTURE; Value: for 7 days. Results final at that time.; Status: F Lab Order: BLOOD CULTURES; [facility] 06/07/16 10:58 Test: BLOOD CULTURE; Value: No growth after 24 hours . All specimens observed; Status: F Test: BLOOD CULTURE; Value: for 5 days. Results final at that time.; Status: F Test: BLOOD CULTURE; Value: No Growth after 48 hours. All Specimens observed; Status: F Test: BLOOD CULTURE; Value: for 7 days. Results final at that time.; Status: F Lab Order: HCG, QUALITATIVE; [facility] 06/07/16 10:14 Test: HCG, SERUM QUALITATIVE; Value: NEGATIVE; Range: NEGATIVE; Status: F Radiology Order: Chest, 2 View (pa\E\lat) Test: Chest, 2 View (pa\E\lat) REASON FOR EXAMINATION: Shortness of Breath; PA and lateral chest:; ; Comparison is 02/03/2016.; ; The lung damian are clear. The cardiac size is normal; ; The colten, mediastinum, and bony thorax are unremarkable.; ; Impression:; ; Negative PA and lateral chest. There is no interval change.; ; ; Signed by; Clint Pierson MD 06/07/2016 10:11 A; Outcome: 12:28 Discharge ordered by Provider. 12:38 Discharge Assessment: patient administered narcotics - no. The following High Risk rs3 Discharge criteria are identified: None. Discharged to home with family. Condition: stable. Discharge instructions given to patient, Instructed on discharge instructions, follow up and referral plans. medication usage, Demonstrated understanding of instructions, medications, Pt was receptive of discharge instructions/ teaching. Prescriptions given X 2. No special radiology studies were completed. Property :Personal belongings accompany Pt. 12:39 Patient left the ED. rs3 Signatures: Dispatcher Med[employer] EDMS Sarai Fisher MD MD ml Luis Lanza,RN RN martinek Blanca Peck, Reg Reg Mindy Neff,RN RN rs3 Raymond Estrada, RN RN ml6 Bebe Atkins RN RN hs1 David Ko Demeishia [facility] Kelli White,RN RN js13 Deepika Mccarthy, Ricarda Valero, OLGA URGENT CARE NURSE PRACTITIONER bnb Corrections: (The following items were deleted from the chart) 09:44 09:42 BP 151 / 94; Pulse 119bpm; Resp 24bpm; Pulse Ox 98% RA; 163.29 kg; Height 5 ft. 5 dem1 in.; BMI: 59.9; dem1 12:18 11:42 BP 115 / 64 Auto; rs3 rs3 Chart Complete MTDD
--- NOTE | 2016-06-09 13:39 | EDDOCDS ---
Physician Documentation [facility] Name: Holly Grady Age: 31 yrs Sex: Female : 1985 Arrival Date: 06/07/2016 Time: 09:40 Bed 12 Private MD: Terri Conway Disposition: 06/07/16 12:28 Discharged to Home/Self Care. Impression: Mild persistent asthma with (acute) exacerbation, Acute bronchitis. - Condition is Stable. - Discharge Instructions: Acute Bronchitis, Asthma, Adult, [id number]. - Prescriptions for Zithromax Z- Michael 250 mg Oral Tablet - take 1 tablet by ORAL route as directed for 5 days Day 1- take two tablets once. Day 2, 3, 4 , 5 take one tablet once daily.; 6 tablet. Prednisone 20 mg Oral Tablet - take 1 tablet by ORAL route as directed Day 1-3: 3 po, day 4-7: 2 po, day 8-10: 1 po; 20 tablet. Albuterol Sulfate 90 mcg/actuation Inhalation HFA Aerosol Inhaler - inhale 2 puff by INHALATION route every 4 hours As needed; 1 Inhaler. - Medication Reconciliation, Local Pharmacy Hours form. - Follow up: Terri Conway; When: 2 - 3 days. - Problem is an acute exacerbation. - Symptoms have improved. - Notes: please follow up w terri conway. return if worsening symptopms Historical: - Allergies: Amoxicillin; SULFA (SULFONAMIDES); Latex; - Home Meds: 1. lamotrigine 200 mg Oral tab 1 tab once daily (Last dose: 06/07/2016 08:00) 2. Klonopin 1 mg Oral tab 1 tab 3 times per day (Last dose: 06/07/2016 08:00) 3. mirtazapine 30 mg oral TbDL 1 tab once daily (Last dose: 06/06/2016 22:00) 4. Geodon 80 mg Oral cap 1 cap 2 times per day (Last dose: 06/07/2016 08:00) - PMHx: Bipolar disorder; - PSHx: Tonsillectomy; - Family history: Not pertinent. - Social history: Smoking status: Patient uses tobacco products, light tobacco smoker. No barriers to communication noted, The patient speaks fluent Luxembourgish. - : The pt / caregiver states he / she is not on anticoagulants. Home medication list is obtained from the patient. - Exposure Risk Screening:: None identified. Vital Signs: 06/07 09:42 BP 151 / 94; Pulse 119; Resp 24; Temp 98.4(T); Pulse Ox 98% on R/A; Weight 163.29 kg / dem1 359.99 lbs; Height 5 ft. 5 in. (165.10 cm); 09:53 BP 177 / 115; Pulse 115; Resp 28; Temp 97.9(O); Pulse Ox 95% on R/A; Pain 8/10; bnb 11:42 Pulse 102; Pulse Ox 98% ; rs3 11:42 BP 115 / 64 (auto/); Resp 22; rs3 12:10 Pulse Ox 94% on R/A; jml1 12:37 BP 123 / 62; Pulse 98; Resp 20; Temp 98(T); Pulse Ox 99% on R/A; Pain 0/10; rs3 09:42 Body Mass Index 59.91 (163.29 kg, 165.10 cm) dem1 12:10 pt walked approximately 500 ft and maintained 94% O2 jml1 MDM: 09:52 Call Respiratory ordered. ml6 09:52 Call Respiratory complete. kcs 09:53 -Influenza A&B Rapid Antigen - Nose Ordered. EDMS 09:53 BMP Ordered. EDMS 09:53 CBC with Diff Ordered. EDMS 09:53 Chest, 2 View (pa\E\lat) Ordered. EDMS 09:59 Albuterol 5 mg Nebulizer once ordered. ml 10:00 Atrovent - Ipratropium 500 mcg Nebulizer once ordered. ml 10:00 Call Respiratory ordered. ml 10:00 Solu-MEDROL (2mg/kg) 125 mg IVP once; Max 125mg ordered. ml 10:01 Call Respiratory complete. deg 10:19 IV Saline Lock ordered. ml 10:20 -Blood Culture (Adults Only), peripheral from different site, or from device/port/PICC ml etc. if present ordered. 10:21 Lactic Acid (Valdez tube on ice) Ordered. EDMS 10:21 -Blood Culture (Adults Only), peripheral from different site, or from device/port/PICC deg etc. if present complete. 10:21 -Blood Culture Ordered. EDMS 10:23 BLOOD CULTURES Ordered. EDMS 10:26 HCG, QUALITATIVE Ordered. EDMS 10:59 BMP Reviewed. ml 10:59 -Influenza A&B Rapid Antigen - Nose Reviewed. ml 10:59 CBC with Diff Reviewed. ml 10:59 HCG, QUALITATIVE Reviewed. ml 10:59 Chest, 2 View (pa\E\lat) Reviewed. ml 11:11 Albuterol 2.5 mg Nebulizer once ordered. ml 11:11 Albuterol-Ipratropium 3 ml Inhalation once ordered. ml 11:58 Lactic Acid (Valdez tube on ice) Reviewed. ml 12:01 Misc. Nursing Order ordered. ml 12:16 azithromycin 500 mg PO once ordered. ml 13:07 Financial registration complete. az 13:22 [facility] Payment Agreement was scanned into [email or web address] and attached to record. az 14:16 T-Sheet-- Draft Copy was scanned into [email or web address] and attached to record. gb 14:17 Radiology Report was scanned into MEDHOST and attached to record. gb 06/08 08:07 T-Sheet-- Draft Copy was scanned into [id number] and attached to record. gb Administered Medications: 06/07 09:59 CANCELLED (Other Intervention Used): Albuterol 2.5 mg Nebulizer once ml 10:20 Drug: Albuterol 5 mg [albuterol sulfate 2.5 mg/0.5 mL solution for nebulization (1 mL)] kjn Route: Nebulizer; 10:20 Drug: Atrovent - Ipratropium 500 mcg [ipratropium bromide 0.02 % solution for kjn inhalation (2.5 mL)] Route: Nebulizer; 11:00 Drug: Solu-MEDROL (2mg/kg) 125 mg [Solu-Medrol 500 mg intravenous solution (125 mg)] jmk Route: IVP; Site: right antecubital; 11:22 Drug: Albuterol 2.5 mg [albuterol sulfate 2.5 mg/0.5 mL solution for nebulization (0.5 kjn mL)] Route: Nebulizer; 11:22 Drug: Albuterol-Ipratropium 3 ml [ipratropium-albuterol 0.5 mg-3 mg(2.5 mg base)/3 mL kjn nebulization soln (3 mL)] Route: Inhalation; 12:37 Drug: azithromycin 500 mg [azithromycin 250 mg tablet (2 tabs)] Route: PO; rs3 Signatures: Dispatcher [employer] EDMS Sarai Fisher MD MD ml Sleeman, Kacey, RN RN Sophia Herr, [employer] deg Blanca Peck, Reg Reg gb Mindy Powers RN RN rs3 Raymond Estrada RN RN ml6 Kelli WhiteRN RN js13 Mckenzie Reyez Jean RN jmk Navarra, Katherine kjn The chart was reviewed and I authenticate all verbal orders and agree with the evaluation and treatment provided.Corrections: (The following items were deleted from the chart) 09:59 09:52 Albuterol 2.5 mg Nebulizer once ordered. ml6 ml 10:26 10:21 HCG, QUALITATIVE+LAB ordered. EDMS EDMS Attachments: 13:22 [facility] Payment Agreement az 06/08 08:07 T-Sheet-- Draft Copy gb Chart Complete MTDD
== END 2016-06-07 12:39 | disposition home or self-care (01) ==
LOC: M ED 09:40
DX: J20.9 Acute bronchitis, unspecified (principal); J45.31 Mild persistent asthma with (acute) exacerbation; F31.9 Bipolar disorder, unspecified; Z72.0 Tobacco use; Z79.899 Other long term (current) drug therapy; Z88.0 Allergy status to penicillin; Z88.2 Allergy status to sulfonamides; Z91.040 Latex allergy status
CPT/HCPCS: 36415; 71020; 80048; 83605; 84703; 85025; 87040; 87804; 94640; 96374; 99284; J2930

== ENCOUNTER → 2018-10-10 | Outpatient (REF) | payer OTHER | LOC: M SFHCPLAZ 08:07 | PROVIDERS: ATTEND Student in an Organized Health Care Education/Training Program | DX: Z53.9 Procedure and treatment not carried out, unspecified reason (principal); Z76.89 Persons encountering health services in other specified circumstances ==

== ENCOUNTER → 2019-02-09 | Outpatient (REF) | payer OTHER | LOC: M SFHCPLAZ 12:47 | DX: Z53.9 Procedure and treatment not carried out, unspecified reason (principal) ==

== ENCOUNTER → 2019-02-20 | Outpatient (CLI) | payer OTHER ==
[2019-02-20 18:11] LABS: ALBUMIN 3.1 GM/DL (3.2-5.2); ALT/SGPT 15 U/L (12-78); BILIRUBIN,TOTAL 0.3 MG/DL (0.2-1.0); BLOOD UREA NITROGEN 9 MG/DL (7-18); CALCIUM LEVEL 8.6 MG/DL (8.5-10.1); CARBON DIOXIDE LEVEL 26 MEQ/L (21-32); CHLORIDE LEVEL 108 MEQ/L (98-107); CHOLESTEROL LEVEL 201 MG/DL (<200); CHOLESTEROL RISK RATIO 4.102 (<5); CREATININE FOR GFR 0.75 MG/DL (0.55-1.30); GLOMERULAR FILTRATION RATE > 60.0 (>60); GLUCOSE, FASTING 89 MG/DL (70-100); HDL CHOLESTEROL 49 MG/DL (>40); LDL CHOLESTEROL 128 MG/DL (<100); NON-HDL-C 152 MG/DL; POTASSIUM SERUM 4.5 MEQ/L (3.5-5.1); SODIUM LEVEL 140 MEQ/L (136-145); TOTAL PROTEIN 6.5 GM/DL (6.4-8.2); TRIGLYCERIDES LEVEL 120 MG/DL (<150)
[2019-02-20 20:26] LABS: HEMOGLOBIN A1c 5.6 %
== END ==
LOC: M LAB 16:44
PROVIDERS: ATTEND Nurse Practitioner Psychiatric/Mental Health
DX: F31.9 Bipolar disorder, unspecified (principal); Z79.899 Other long term (current) drug therapy

== ENCOUNTER 2019-06-18 11:16 | Emergency (ER) | payer OTHER ==
[~2019-06-18] VITALS: Ht 165.1 cm; Wt 181.8 kg
[2019-06-18] MEDS ORDERED: QUET1TAB10 PO (12:07)
[2019-06-18] MEDS ORDERED: CLON2TAB7 PO (12:07)
[2019-06-18] MEDS ORDERED: MIRT1TAB16 PO (12:07)
[2019-06-18] MEDS ORDERED: LAMO200T3 PO (12:07)
[2019-06-18] MEDS ORDERED: ZOLP10TA2 PO (12:07)
[2019-06-18] MEDS ORDERED: BUPR300T92 PO (12:07)
--- NOTE | 2019-06-18 12:14 | REP ---
Clinical: Trauma. Fall. Technique: AP, lateral, bilateral oblique and sunrise views of the left knee. Findings: Mild tricompartmental osteoarthritic degenerative changes are appreciated. Chronic changes at the tibial tuberosity. No acute fracture or dislocation. Anterior swelling. Small effusion cannot be excluded. Impression: Soft tissue swelling and possible small effusion. Degenerative changes. No acute fracture. Electronically Signed by Bartolo Barr MD 06/18/2019 12:06 P
[2019-06-18] MEDS ORDERED: IBUPROFEN 600 MG TAB PO ONE (12:30)
[2019-06-18] MEDS ORDERED: IBUP-1022 PO (12:31)
[2019-06-18] MEDS ORDERED: ROLLMIS8 XX (12:32)
[2019-06-18 12:45] VITALS: BP 125/72
== END 2019-06-18 12:46 | disposition home or self-care (01) ==
LOC: M ED 11:16
DX: S80.02XA Contusion of left knee, initial encounter (principal); W01.0XXA Fall on same level from slipping, tripping and stumbling without subsequent striking against object, initial encounter; Y92.410 Unspecified street and highway as the place of occurrence of the external cause; Z79.899 Other long term (current) drug therapy

== ENCOUNTER → 2019-10-31 | Outpatient (CLI) | payer OTHER ==
[~2019-10-31] MED LIST: ALBU8.5H; BUPR300T92 PO; CLON2TAB7 PO; FLUT1INH3; IBUP-1022 PO; LAMO200T3 PO; MIRT1TAB16 PO; QUET1TAB10 PO; ROLLMIS8 XX; ZOLP10TA2 PO
[2019-10-31 13:31] LABS: BASO # 0.1 10^3/uL (0.0-0.2); BASO % 0.5 % (0.0-1.0); EOS # 0.2 10^3/uL (0.0-0.5); EOS % 2.2 % (0.0-3.0); HEMATOCRIT 39.7 % (36.0-47.0); HEMOGLOBIN 12.3 g/dl (12.0-15.5); LYMPH # 3.7 10^3/uL (1.5-5.0); LYMPH % 36.2 % (24.0-44.0); MEAN CORPUSCULAR HEMOGLOBIN 26.5 pg (27.0-33.0); MEAN CORPUSCULAR VOLUME 85.6 fl (80.0-96.0); MONO # 0.6 10^3/uL (0.0-0.8); MONO % 5.9 % (0.0-5.0); NEUTROPHILS # 5.6 10^3/uL (1.5-8.5); NEUTROPHILS % 54.7 % (36.0-66.0); PLATELET COUNT, AUTOMATED 323 10^3/uL (150-450); RED BLOOD COUNT 4.64 10^6/uL (4.00-5.40); WHITE BLOOD COUNT 10.2 10^3/uL (4.0-10.0)
[2019-10-31 14:11] LABS: ALBUMIN 3.2 GM/DL (3.2-5.2); ALT/SGPT 25 U/L (12-78); BILIRUBIN,TOTAL 0.2 MG/DL (0.2-1.0); BLOOD UREA NITROGEN 9 MG/DL (7-18); CARBON DIOXIDE LEVEL 25 MEQ/L (21-32); CHLORIDE LEVEL 110 MEQ/L (98-107); CHOLESTEROL LEVEL 188 MG/DL (<200); CHOLESTEROL RISK RATIO 4.585 (<5); CREATININE FOR GFR 0.67 MG/DL (0.55-1.30); FREE T4 0.84 NG/DL (0.76-1.46); GLOMERULAR FILTRATION RATE > 60.0 (>60); GLUCOSE, FASTING 91 MG/DL (70-100); HDL CHOLESTEROL 41 MG/DL (>40); LDL CHOLESTEROL 118 MG/DL (<100); NON-HDL-C 147 MG/DL; POTASSIUM SERUM 3.9 MEQ/L (3.5-5.1); SODIUM LEVEL 142 MEQ/L (136-145); TOTAL PROTEIN 6.8 GM/DL (6.4-8.2); TRIGLYCERIDES LEVEL 143 MG/DL (<150)
[2019-10-31 14:25] LABS: HEMOGLOBIN A1c 5.8 %
== END ==
LOC: M LAB 11:18
PROVIDERS: ATTEND Nurse Practitioner Psychiatric/Mental Health
DX: F43.10 Post-traumatic stress disorder, unspecified (principal); F19.10 Other psychoactive substance abuse, uncomplicated; Z79.899 Other long term (current) drug therapy

== ENCOUNTER → 2019-10-31 | Outpatient (CLI) | payer OTHER | LOC: M LAB 11:13 → M RAD 11:13 | PROVIDERS: ATTEND Student in an Organized Health Care Education/Training Program | DX: M54.2 Cervicalgia (principal); M25.561 Pain in right knee; Z53.9 Procedure and treatment not carried out, unspecified reason ==

== ENCOUNTER → 2019-11-01 | Outpatient (CLI) | payer OTHER ==
--- NOTE | 2019-11-01 17:03 | REP ---
Clinical: Right knee pain. Technique: AP, lateral views of the right and left knee. Findings: Right knee demonstrates mildly increased sclerosis along the tibial plateau and minimal medial joint space narrowing. No acute fracture or dislocation. Left knee demonstrates mild increase sclerosis along the tibial plateau with minimal medial joint space narrowing and subtle early spurring along the lateral tibial plateau. Lateral view best demonstrates chronic calcifications in the patellar tendon approaching the tibial tuberosity. No acute fracture or dislocation. Impression: Mild degenerative changes. Electronically Signed by Bartolo Barr MD 11/01/2019 04:54 P
--- NOTE | 2019-11-01 17:06 | REP ---
Clinical: Neck pain. Technique: AP, lateral, flexion/extension, bilateral oblique and open mouth views of the cervical spine. Findings: Alignment and lordosis maintained. Mild age-related changes include subtle increased sclerosis to the end plates and minimal disc space narrowing at C6-7. Open mouth view demonstrates normal C1-C2 articulation and odontoid process. Impression: Mild age-related changes. Electronically Signed by Bartolo Barr MD 11/01/2019 04:57 P
== END ==
LOC: M RAD 16:07
PROVIDERS: ATTEND Student in an Organized Health Care Education/Training Program
DX: M54.2 Cervicalgia (principal)

== ENCOUNTER 2019-11-12 12:42 | Emergency (ER) | payer OTHER ==
[~2019-11-12] VITALS: Ht 165.1 cm; Wt 195.4 kg
[~2019-11-12 12:42] MED LIST changes: -ALBU8.5H; -FLUT1INH3
[2019-11-12] MEDS ORDERED: FLUT1INH3 (12:51)
[2019-11-12] MEDS ORDERED: ALBU8.5H (12:51)
[2019-11-12] MEDS ORDERED: KETOROLAC TROMETHAMINE 10 MG TAB PO ONE (13:45)
--- NOTE | 2019-11-12 15:12 | REP ---
Left lower extremity Duplex Doppler venous ultrasound: Real time compression and duplex Doppler interrogation of the left lower extremity deep venous system is performed. The left common femoral, superficial femoral and popliteal veins are fully compressible with transducer pressure and demonstrate normal spontaneous and phasic flow, without evidence of deep venous thrombosis. Impression: No evidence of deep venous thrombosis of the left lower extremity femoral popliteal venous system. Electronically Signed by Clint Valdez MD 11/12/2019 03:04 P
[2019-11-12 15:40] VITALS: BP 126/90
--- NOTE | 2019-11-13 01:52 | REP ---
LEFT KNEE SERIES: Five views of left knee are performed. No acute fracture or dislocation is seen. There is mild medial joint space narrowing, subchondral sclerosis, and spurring. There is calcification of the patellar tendon at its insertion onto the anterior tibial tubercle. There is mild spurring of the superior pole of the patella. I suspect a small joint effusion. IMPRESSION: Mild degenerative changes. Small joint effusion. No acute fracture or dislocation. Electronically Signed by Clint Valdez MD 11/13/2019 11:36 P
== END 2019-11-12 15:42 | disposition home or self-care (01) ==
LOC: M ED 12:42
DX: M17.12 Unilateral primary osteoarthritis, left knee (principal); E66.01 Morbid (severe) obesity due to excess calories; J45.909 Unspecified asthma, uncomplicated; Z79.899 Other long term (current) drug therapy; Z79.51 Long term (current) use of inhaled steroids; Z83.2 Family history of diseases of the blood and blood-forming organs and certain disorders involving the immune mechanism; Z88.0 Allergy status to penicillin; Z88.2 Allergy status to sulfonamides; Z91.048 Other nonmedicinal substance allergy status

== ENCOUNTER → 2020-02-08 | Outpatient (CLI) | payer OTHER ==
[~2020-02-08] MED LIST changes: +ALBU8.5H; +FLUT1INH3
[2020-02-08 16:11] LABS: BASO # 0.1 10^3/uL (0.0-0.2); BASO % 0.7 % (0.0-1.0); EOS # 0.1 10^3/uL (0.0-0.5); EOS % 1.1 % (0.0-3.0); HEMATOCRIT 38.2 % (36.0-47.0); HEMOGLOBIN 12.1 g/dl (12.0-15.5); LYMPH # 3.8 10^3/uL (1.5-5.0); MEAN CORPUSCULAR HEMOGLOBIN 27.1 pg (27.0-33.0); MEAN CORPUSCULAR HGB CONC 31.7 g/dl (32.0-36.5); MEAN CORPUSCULAR VOLUME 85.7 fl (80.0-96.0); MONO # 0.6 10^3/uL (0.0-0.8); MONO % 5.6 % (0.0-5.0); NEUTROPHILS % 56.2 % (36.0-66.0); PLATELET COUNT, AUTOMATED 313 10^3/uL (150-450); RED BLOOD COUNT 4.46 10^6/uL (4.00-5.40); WHITE BLOOD COUNT 10.6 10^3/uL (4.0-10.0)
[2020-02-08 16:28] LABS: ALBUMIN 3.2 GM/DL (3.2-5.2); ALT/SGPT 21 U/L (12-78); BILIRUBIN,TOTAL 0.1 MG/DL (0.2-1.0); BLOOD UREA NITROGEN 5 MG/DL (7-18); CALCIUM LEVEL 8.7 MG/DL (8.5-10.1); CARBON DIOXIDE LEVEL 23 MEQ/L (21-32); CHLORIDE LEVEL 112 MEQ/L (98-107); CREATININE FOR GFR 0.66 MG/DL (0.55-1.30); GLOMERULAR FILTRATION RATE > 60.0 (>60); GLUCOSE, FASTING 93 MG/DL (70-100); POTASSIUM SERUM 4.2 MEQ/L (3.5-5.1); SODIUM LEVEL 140 MEQ/L (136-145); TOTAL PROTEIN 6.5 GM/DL (6.4-8.2)
[2020-02-08 16:36] LABS: TOTAL 25(OH) VITAMIN D 13.6 NG/ML (30.0-100.0)
[2020-02-15 08:09] LABS: LAMOTRIGINE (LAMICTAL) 5.6 ug/mL (2.0-20.0)
== END ==
LOC: M LAB 15:18
PROVIDERS: ATTEND Nurse Practitioner Psychiatric/Mental Health
DX: F25.0 Schizoaffective disorder, bipolar type (principal)
CPT/HCPCS: 36415; 80053; 80175; 82306; 85025; G0480

== ENCOUNTER → 2020-04-12 | Outpatient (CLI) | payer OTHER ==
[2020-04-12 13:35] LABS: BASO # 0.1 10^3/uL (0.0-0.2); BASO % 0.5 % (0.0-1.0); EOS % 0.1 % (0.0-3.0); HEMATOCRIT 41.5 % (36.0-47.0); HEMOGLOBIN 12.6 g/dl (12.0-15.5); LYMPH # 3.1 10^3/uL (1.5-5.0); LYMPH % 28.6 % (24.0-44.0); MEAN CORPUSCULAR HEMOGLOBIN 26.2 pg (27.0-33.0); MEAN CORPUSCULAR HGB CONC 30.4 g/dl (32.0-36.5); MEAN CORPUSCULAR VOLUME 86.3 fl (80.0-96.0); MONO # 0.5 10^3/uL (0.0-0.8); MONO % 4.7 % (0.0-5.0); NEUTROPHILS # 7.2 10^3/uL (1.5-8.5); NEUTROPHILS % 65.6 % (36.0-66.0); PLATELET COUNT, AUTOMATED 349 10^3/uL (150-450); RED BLOOD COUNT 4.81 10^6/uL (4.00-5.40); WHITE BLOOD COUNT 10.9 10^3/uL (4.0-10.0)
[2020-04-12 14:16] LABS: ALBUMIN 3.2 GM/DL (3.2-5.2); ALT/SGPT 18 U/L (12-78); BILIRUBIN,TOTAL 0.4 MG/DL (0.2-1.0); BLOOD UREA NITROGEN 8 MG/DL (7-18); CARBON DIOXIDE LEVEL 25 MEQ/L (21-32); CHLORIDE LEVEL 111 MEQ/L (98-107); CHOLESTEROL LEVEL 204 MG/DL (<200); CREATININE FOR GFR 0.85 MG/DL (0.55-1.30); FREE T4 0.66 NG/DL (0.76-1.46); GLOMERULAR FILTRATION RATE > 60.0 (>60); GLUCOSE, FASTING 127 MG/DL (70-100); HDL CHOLESTEROL 51 MG/DL (>40); LDL CHOLESTEROL 120 MG/DL (<100); LITHIUM LEVEL 0.37 MEQ/L (0.60-1.20); NON-HDL-C 153 MG/DL; POTASSIUM SERUM 4.5 MEQ/L (3.5-5.1); SODIUM LEVEL 142 MEQ/L (136-145); TOTAL PROTEIN 6.4 GM/DL (6.4-8.2); TRIGLYCERIDES LEVEL 165 MG/DL (<150)
[2020-04-12 14:29] LABS: HEMOGLOBIN A1c 5.3 %
== END ==
LOC: M LAB 12:45
PROVIDERS: ATTEND Nurse Practitioner Psychiatric/Mental Health
DX: F25.0 Schizoaffective disorder, bipolar type (principal)

== ENCOUNTER → 2020-05-22 | Outpatient (CLI) | payer OTHER ==
[~2020-05-22] MED LIST changes: -QUET1TAB10 PO; +QUET300T2 PO
--- NOTE | 2020-05-23 05:37 | REP ---
INDICATION: PAIN IN RIGHT KNEE COMPARISON: None. TECHNIQUE: AP, lateral, bilateral oblique and sunrise views. FINDINGS: Lateral view demonstrates unfused calcifications at the level of the tibial tuberosity/distal patellar tendon. Remainder of the examination is essentially age-appropriate. Very subtle early spurring along the joint margins is suggested. No acute fracture or dislocation. No effusion. IMPRESSION: Relatively mild age-related degenerative changes as noted above. <Electronically signed by Bartolo Barr > 05/23/20 0523
== END ==
LOC: M SOG 05-20 09:53
PROVIDERS: ATTEND Orthopaedic Surgery Sports Medicine
DX: M25.561 Pain in right knee (principal)

== ENCOUNTER 2020-12-06 16:12 | Emergency (ER) | payer OTHER ==
[~2020-12-06] VITALS: Ht 165.1 cm; Wt 202.2 kg
[2020-12-06] MEDS ORDERED: PRED20TA (16:18)
[2020-12-06] MEDS ORDERED: GABA-1171 (16:18)
[2020-12-06] MEDS ORDERED: CETI-24 (16:18)
[2020-12-06] MEDS ORDERED: diphenhydrAMINE 50MG/ML VIAL (J1200) IV STA (17:41)
[2020-12-06] MEDS ORDERED: methylPREDNISolone 125MG 2ML VIAL IV ONE (17:45)
[2020-12-06] MEDS ORDERED: NS 1,000 ML IV ONE (17:45)
[2020-12-06] MEDS ORDERED: FAMOTIDINE IV BAG 20 MG in IV 1 EA IV ONE (17:45)
[2020-12-06 18:40] LABS: BASO # 0.1 10^3/uL (0.0-0.2); BASO % 0.4 % (0.0-1.0); EOS # 0.1 10^3/uL (0.0-0.5); EOS % 0.5 % (0.0-3.0); HEMATOCRIT 41.2 % (36.0-47.0); LYMPH # 4.3 10^3/uL (1.5-5.0); LYMPH % 28.6 % (24.0-44.0); MEAN CORPUSCULAR HGB CONC 31.6 g/dl (32.0-36.5); MEAN CORPUSCULAR VOLUME 82.4 fl (80.0-96.0); MONO # 0.6 10^3/uL (0.0-0.8); MONO % 4.3 % (2.0-8.0); NEUTROPHILS # 9.9 10^3/uL (1.5-8.5); NEUTROPHILS % 65.6 % (36.0-66.0); PLATELET COUNT, AUTOMATED 415 10^3/uL (150-450)
[2020-12-06 19:14] LABS: ERYTHROCYTE SEDIMENTATION RATE 37 mm/hr (0-20)
[2020-12-06] MEDS ORDERED: hydrOXYzine 25 MG TAB PO ONE (19:25)
[2020-12-06] MEDS ORDERED: HYDR-3363 PO (19:26)
[2020-12-06] MEDS ORDERED: PRED20TA PO (19:26)
[2020-12-06 19:41] VITALS: BP 132/64
== END 2020-12-06 19:43 | disposition home or self-care (01) ==
LOC: M ED 16:12
DX: L50.9 Urticaria, unspecified (principal); J45.909 Unspecified asthma, uncomplicated; Z79.899 Other long term (current) drug therapy; Z88.0 Allergy status to penicillin; Z88.2 Allergy status to sulfonamides; Z91.030 Bee allergy status
CPT/HCPCS: 80047; 85025; 85652; 86140; 96365; 96375; 99284; J1200; J2930

== ENCOUNTER → 2022-04-12 | Outpatient (REF) | payer OTHER ==
[~2022-04-12] MED LIST changes: +CETI-24; +GABA-1171; +HYDR-3363 PO; +PRED20TA; +PRED20TA PO
[2022-04-12 16:59] LABS: CHOLESTEROL RISK RATIO 4.77 (<5); HDL CHOLESTEROL 38.5 MG/DL (>40); LDL CHOLESTEROL 94.9 MG/DL (<100)
== END ==
LOC: M LAB REF 16:24
PROVIDERS: ATTEND Nurse Practitioner Family
DX: E78.5 Hyperlipidemia, unspecified (principal)

== ENCOUNTER → 2022-07-20 | Outpatient (CLI) | payer OTHER | LOC: M SOG 08:17 | PROVIDERS: ATTEND Orthopaedic Surgery | DX: M25.562 Pain in left knee (principal); M25.561 Pain in right knee ==

== ENCOUNTER → 2022-08-04 | Outpatient (REF) | payer OTHER ==
[2022-08-04 19:15] LABS: CHOLESTEROL RISK RATIO 4.7 (<5); HDL CHOLESTEROL 42.9 MG/DL (>40); LDL CHOLESTEROL 132.7 MG/DL (<100); NON-HDL-C 159.1 MG/DL
[2022-08-04 19:17] LABS: THYROID STIMULATING HORMONE 5.643 uIU/ML (0.55-4.78)
== END ==
LOC: M LAB REF 16:32
PROVIDERS: ATTEND Nurse Practitioner Family
DX: E78.5 Hyperlipidemia, unspecified (principal); E03.9 Hypothyroidism, unspecified

== ENCOUNTER → 2022-11-17 | Outpatient (REF) | payer OTHER ==
[2022-11-17 17:45] LABS: CHOLESTEROL RISK RATIO 3.4 (<5); HDL CHOLESTEROL 49.3 MG/DL (>40); LDL CHOLESTEROL 97.1 MG/DL (<100); NON-HDL-C 118.7 MG/DL; THYROID STIMULATING HORMONE 2.228 uIU/ML (0.55-4.78)
== END ==
LOC: M LAB REF 16:33
PROVIDERS: ATTEND Nurse Practitioner Family
DX: E03.9 Hypothyroidism, unspecified (principal); E78.5 Hyperlipidemia, unspecified

== ENCOUNTER → 2023-02-02 | Outpatient (CLI) | payer OTHER | LOC: M SOG 11:24 | PROVIDERS: ATTEND Orthopaedic Surgery | DX: M25.562 Pain in left knee (principal); M25.561 Pain in right knee ==

== ENCOUNTER → 2023-03-17 | Outpatient (CLI) | payer OTHER | LOC: M WUC 12:02 | PROVIDERS: ATTEND Student in an Organized Health Care Education/Training Program | DX: R06.02 Shortness of breath (principal) ==

== ENCOUNTER → 2023-05-23 | Outpatient (REF) | payer OTHER ==
[2023-05-23 18:17] LABS: BASO # 0.1 10^3/uL (0.0-0.2); BASO % 0.5 % (0.0-1.0); EOS % 0.2 % (0.0-3.0); HEMATOCRIT 39.8 % (36.0-47.0); HEMOGLOBIN 12.8 g/dl (12.0-15.5); LYMPH # 4.2 10^3/uL (1.5-5.0); LYMPH % 45.4 % (24.0-44.0); MEAN CORPUSCULAR HEMOGLOBIN 26.5 pg (27.0-33.0); MEAN CORPUSCULAR HGB CONC 32.2 g/dl (32.0-36.5); MEAN CORPUSCULAR VOLUME 82.4 fl (80.0-96.0); MONO # 0.4 10^3/uL (0.0-0.8); MONO % 4.6 % (2.0-8.0); NEUTROPHILS # 4.6 10^3/uL (1.5-8.5); NEUTROPHILS % 49.1 % (36.0-66.0); PLATELET COUNT, AUTOMATED 306 10^3/uL (150-450); RED BLOOD COUNT 4.83 10^6/uL (4.00-5.40); WHITE BLOOD COUNT 9.3 10^3/uL (4.0-10.0)
[2023-05-23 18:46] LABS: ALBUMIN 3.2 G/DL (3.2-5.2); ALKALINE PHOSPHATASE 74 U/L (46-116); ALT/SGPT 20 U/L (7.0-40); AST/SGOT 12 U/L (<34); BILIRUBIN,TOTAL 0.3 MG/DL (0.3-1.2); BLOOD UREA NITROGEN 8 MG/DL (9-23); CALCIUM LEVEL 9.1 MG/DL (8.5-10.1); CARBON DIOXIDE LEVEL 22 MMOL/L (20-31); CHLORIDE LEVEL 112 MMOL/L (98-107); CHOLESTEROL LEVEL 186 MG/DL (<200); CHOLESTEROL RISK RATIO 5.29 (<5); CREATININE FOR GFR 0.64 MG/DL (0.55-1.30); GLOMERULAR FILTRATION RATE > 60.0 (>60); GLUCOSE, FASTING 121 MG/DL (60-100); HDL CHOLESTEROL 35.1 MG/DL (>40); LDL CHOLESTEROL 115.9 MG/DL (<100); NON-HDL-C 150.9 MG/DL; POTASSIUM SERUM 4.1 MMOL/L (3.5-5.1); SODIUM LEVEL 143 MMOL/L (136-145); TOTAL PROTEIN 6.1 G/DL (5.7-8.2); TRIGLYCERIDES LEVEL 175 MG/DL (<150)
[2023-05-23 18:48] LABS: TOTAL 25(OH) VITAMIN D 33.1 NG/ML (20.0-100.0)
[2023-05-23 19:08] LABS: HEMOGLOBIN A1c 5.4 % (4.0-6.0)
== END ==
LOC: M LAB REF 17:02
PROVIDERS: ATTEND Nurse Practitioner Family
DX: L08.9 Local infection of the skin and subcutaneous tissue, unspecified (principal); Z13.228 Encounter for screening for other metabolic disorders

== ENCOUNTER → 2024-07-19 | Outpatient (REF) | payer OTHER ==
[~2024-07-19] MED LIST changes: +BUPR-597 PO; -BUPR300T92 PO
[2024-07-19 15:54] LABS: BASO # 0.1 10^3/uL (0.0-0.2); BASO % 0.7 % (0.0-1.0); EOS # 0.3 10^3/uL (0.0-0.5); EOS % 1.9 % (0.0-3.0); HEMATOCRIT 39.8 % (36.0-47.0); HEMOGLOBIN 12.4 g/dl (12.0-15.5); LYMPH # 3.9 10^3/uL (1.5-5.0); LYMPH % 30.2 % (24.0-44.0); MEAN CORPUSCULAR HEMOGLOBIN 25.6 pg (27.0-33.0); MEAN CORPUSCULAR HGB CONC 31.2 g/dl (32.0-36.5); MEAN CORPUSCULAR VOLUME 82.1 fl (80.0-96.0); MONO # 0.5 10^3/uL (0.0-0.8); MONO % 4.2 % (2.0-8.0); NEUTROPHILS % 62.5 % (36.0-66.0); PLATELET COUNT, AUTOMATED 358 10^3/uL (150-450); RED BLOOD COUNT 4.85 10^6/uL (4.00-5.40); WHITE BLOOD COUNT 12.9 10^3/uL (4.0-10.0)
[2024-07-19 16:23] LABS: ALKALINE PHOSPHATASE 80 U/L (35-104); ALT/SGPT 21 U/L (7.0-40); AST/SGOT 12 U/L (<34); BILIRUBIN,TOTAL 0.3 MG/DL (0.3-1.2); BLOOD UREA NITROGEN 7 MG/DL (9-23); CALCIUM LEVEL 8.4 MG/DL (8.5-10.1); CARBON DIOXIDE LEVEL 21 MMOL/L (20-31); CHLORIDE LEVEL 109 MMOL/L (98-107); CHOLESTEROL LEVEL 165 MG/DL (<200); CHOLESTEROL RISK RATIO 4.13 (<5); CREATININE FOR GFR 0.59 MG/DL (0.55-1.30); GLOMERULAR FILTRATION RATE > 60.0 (>60); GLUCOSE, FASTING 150 MG/DL (60-100); HDL CHOLESTEROL 39.9 MG/DL (>40); LDL CHOLESTEROL 94.7 MG/DL (<100); MAGNESIUM LEVEL 1.9 MG/DL (1.8-2.4); NON-HDL-C 125.1 MG/DL; POTASSIUM SERUM 4.3 MMOL/L (3.5-5.1); SODIUM LEVEL 144 MMOL/L (136-145); TOTAL PROTEIN 6.3 G/DL (5.7-8.2); TRIGLYCERIDES LEVEL 152 MG/DL (<150)
[2024-07-19 16:27] LABS: TOTAL 25(OH) VITAMIN D 19.7 NG/ML (20.0-100.0)
[2024-07-19 16:29] LABS: HEMOGLOBIN A1c 5.3 % (4.0-6.0)
== END ==
LOC: M LAB REF 15:10
PROVIDERS: ATTEND Nurse Practitioner Family
DX: E66.01 Morbid (severe) obesity due to excess calories (principal); E55.9 Vitamin D deficiency, unspecified

== ENCOUNTER → 2025-01-16 | Outpatient (CLI) | payer OTHER ==
[~2025-01-16] MED LIST changes: -BUPR-597 PO; +BUPR-766 PO; -IBUP-1022 PO; +IBUP600T42 PO; +ZOLP10TA11 PO; -ZOLP10TA2 PO
== END ==
LOC: M RAD 11:29
PROVIDERS: ATTEND Psychiatry & Neurology Neurology
DX: G40.89 Other seizures (principal)